=== PATIENT | female | born 1990 ===

== ENCOUNTER 2021-11-19 11:09 | Observation (INO) ==
[2021-11-19] MEDS ORDERED: IOPAMIDOL 100 ML BOTTLE IV ONE (11:10)
--- NOTE | 2021-11-19 11:32 | Emergency Department Note ---
HPI General Chief complaint: Abdominal Pain Stated complaint: RLQ pain Time Seen by Provider: 11/19/21 11:31 Source: patient Mode of arrival: ambulatory Limitations: no limitations History of Present Illness HPI Narrative: 31-year-old female with no past medical history presenting with right lower quadrant pain that started this morning. Pain is described as stabbing and sharp. Associated nausea. She went to [facility] where she had labs obtained which showed a white blood cell count of 16.1. She was sent to the emergency department for further evaluation. Patient states she has an IUD in place. No fever, vomiting, blood in the stool, dysuria, or hematuria. Related Data Allergies Allergy/AdvReac Type Severity Reaction Status Date / Time No Known Drug Allergies Allergy Unverified 11/19/21 11:10 Review of Systems ROS ROS Narrative: Narrative: Constitutional: Denies fever or chills ENT ED: Denies throat pain Cardiovascular: Denies chest pain Respiratory: Denies shortness of breath or cough Gastrointestinal: Reports abdominal pain and nausea; Denies vomiting, diarrhea or melena Genitourinary: Denies dysuria or hematuria Musculoskeletal: Denies back pain Integumentary: Denies rash or lesions Neurological: Denies headache or weakness Psychiatric: Denies anxiety Endocrine: Denies fatigue Hematological/Lymphatic: Denies easy bruising PFSH Narrative Patient History Narrative: Narrative: Medical/Surgical/Family History All Active Problems (Updated 11/19/21 @ 14:24 by Quinn Bosch MD) Appendicitis (Acute) Social History Smoking Status: Never smoker Exam Narrative Narrative: Narrative: General Limitations: no limitations General appearance: Present alert and in no apparent distress Head Head: Present atraumatic and normocephalic Eye Eye: Present normal appearance and EOMI; Absent scleral icterus or conjunctival injection ENT ENT: Present mucous membranes moist Neck Neck: Present trachea midline Chest Chest: Present symmetric chest wall rise Respiratory Respiratory: Present normal lung sounds bilaterally; Absent respiratory distre ss, wheezes, stridor, accessory muscle use or prolonged expiratory phase Cardiovascular Cardiovascular: Present regular rate and normal rhythm; Absent systolic murmur or diastolic murmur Adbominal Abdominal: Present soft and tenderness (Mild right lower quadrant tenderness to palpation); Absent distention, guarding, rebound or rigidity Extremities Extremities: Present normal inspection; Absent pretibial edema Back Back: Absent CVA tenderness (R) or CVA tenderness (L) Neurological Neurological: Present alert and oriented X3; Absent motor sensory deficit Psychiatric Psychiatric: Present normal affect and normal mood Skin Skin: Present warm (WNL) and dry Course Consultations Consultation #1: Dr. Lau, general surgery Time: 14:20 Vital Signs Vital signs: Vital Signs Temperature 98.1 F 11/19/21 11:11 Pulse Rate 100 H 11/19/21 11:11 Respiratory Rate 16 11/19/21 11:11 Blood Pressure 120/84 11/19/21 11:11 Pulse Oximetry (%) 100 11/19/21 11:11 Temperature 98.1 F 11/19/21 11:11 Pulse Rate 82 11/19/21 14:55 Respiratory Rate 16 11/19/21 11:11 Blood Pressure 108/71 11/19/21 14:55 Pulse Oximetry (%) 99 11/19/21 14:55 MDM MDM Narrative Medical decision making narrative: 31-year-old female presenting with right lower quadrant pain. Vital signs are stable. Given her leukocytosis and right lower quadrant tenderness, concern for appendicitis. Will obtain labs, UA, and CT imaging. 1422: Labs notable for leukocytosis to 15.3. CT abdomen shows evidence of simple appendicitis without signs of perforation. The appendix is moderately dilated at 9mm. I spoke with Dr. Lau of general surgery who will come and evaluate the patient. IV Zosyn ordered and patient updated. 1520: Patient will be admitted for IV antibiotics by Dr. Lau. She is okay for clear liquid diet today. Lab Data Lab results reviewed: Yes I reviewed the patient's lab results. Result diagrams: 11/19/21 12:00 11/19/21 12:00 Labs: Lab Results 11/19/21 11/19/21 11/19/21 Range/Units 12:00 12:00 12:10 WBC 15.3 H (4.5-11.0) K/mcL RBC 4.50 (3.59-5.38) M/mcL Hgb 14.3 (11.2-15.7) g/dL Hct 41.8 (34.1-44.9) % MCV 92.9 (80.0-100.0) fL MCH 31.8 (26.0-34.0) pg MCHC 34.2 (31.0-36.0) g/dL RDW 12.9 (11.5-14.5) % Plt Count 288 (140-440) K/mcL MPV 10.3 (7.4-10.4) fL Neut % (Auto) 87.4 H (38.0-78.0) % Lymph % (Auto) 7.4 L (15.5-49.0) % [place] % (Auto) 4.8 (1.0-12.0) % Eos % (Auto) 0.1 (0.0-7.0) % Baso % (Auto) 0.3 (0.0-2.0) % Lymph # (Auto) 1.13 L (1.50-4.80) K/mcL [place] # (Auto) 0.74 (0.10-0.90) K/mcL Eos # (Auto) 0.01 (0.00-0.70) K/mcL Baso # (Auto) 0.04 (0.00-0.30) K/mcL Absolute Neutrophils 13.38 H (1.80-8.00) K/mcL Sodium 135 (133-145) mmol/L Potassium 4.2 (3.3-5.1) mmol/L Chloride 103 (96-108) mmol/L Carbon Dioxide 24 (22-30) mmol/L Anion Gap 8.0 (8.0-16.0) BUN 7 (6-20) mg/dL Creatinine 0.7 (0.6-1.1) mg/dL GFR Calculation 113 Glucose 120 H (70-105) mg/dL Calcium 9.1 (8.6-10.4) mg/dL Total Bilirubin 0.3 (0.1-1.0) mg/dL AST 22 (<32) U/L ALT 20 (<40) U/L Alkaline Phosphatase 77 (39-117) U/L Total Protein 7.1 (5.9-8.4) gm/dL Albumin 4.4 (3.2-5.2) gm/dL Globulin 2.7 (2.2-3.7) gm/dL Albumin/Globulin Ratio 1.6 (1.0-2.3) Urine Color Yellow Urine Appearance Hazy A (Clear) Urine pH 8.0 (5.0-9.0) Ur Specific [place] 1.009 (1.000-1.035) Urine Protein Negative (Negative) mg/dL Urine Glucose (UA) Negative (Negative) mg/dL Urine Ketones Negative (Negative) mg/dL Urine Occult Blood >=1.0 A (Negative) mg/dL Urine Nitrate Negative (Negative) Urine Bilirubin Negative (Negative) mg/dL Urine Urobilinogen Negative mg/dL Ur Leukocyte Esterase Negative (Negative) /uL Urine RBC 66 H (0-3) /hpf Urine WBC 1 (0-4) /hpf Ur Squamous Epith Cells 0 (0-4) /hpf Urine Bacteria Few A (0) /hpf Urine Mucus Few A (None) /hpf Ur Culture Indicated? Yes ED POC Tests ED POC Tests: HCG POC Results Negative Radiology Data Radiology results reviewed: Yes I reviewed the patient's radiology results. Radiology results narrative: Ordering Physician:Quinn Bosch M.D. Date of Service:11/19/21 Procedure(s):CT abdomen pelvis w con CLINICAL INFORMATION: Right lower quadrant pain COMPARISON: None. TECHNIQUE: Following enteric contrast, 80 cc of Isovue-370 were injected intravenously, and 60 seconds later, 0.625 mm helical slices were obtained from the mid heart through the subtrochanteric regions. Following reconstruction, 2.5 mm sagittal, coronal and axial reformatted images were processed and reviewed at bone, lung and soft tissue windows. Five minutes later, 0.625 mm helical slices were obtained from the mid heart through the kidneys and viewed at soft tissue windows.The exam was performed using radiation dose optimization techniques including, but not limited to, automated exposure control, adjustment of the mA and/or kV according to patient size and use of iterative reconstruction technique. FINDINGS: The lung bases are clear. No effusions. The visualized heart is grossly normal. Abdominal images show mild fatty change within the liver. No focal hepatic lesions. Gallbladder and bile ducts, liver, both adrenal glands, spleen, pancreas and aorta, including aortic branches, are normal in size, configuration and attenuation without focal lesion. Two small cysts are present in the inferior pole the right kidney ranging up to 12 mm. No significant renal abnormality. There is no free air, free fluid or adenopathy. Pelvic images show normal urinary bladder. Anteflexed uterus is normal in size: 7.1 x 4 cm. There is a 12 mm fibroid in the anterior mid uterine segment. Both ovaries are normal colon the left is 3.2 x 2.5 cm and the right is 3.4 x 2.5 cm. The stomach, small bowel, and large bowel are grossly normal. The appendix is located in the inferior pericecal region and is moderately dilated-9 mm with wall thickening mucosal enhancement and mild inflammation the periappendiceal fat. Findings compatible simple appendicitis. Bone windows show no osseous abnormality IMPRESSION: Simple appendicitis. Appendix is located in the inferior pericecal region. Mild fatty change in the liver. Interpreted and Authenticated by: Serafin Prescott 11/19/21 Discharge Plan Patient/Caregiver Discharge Instructions Pt seen by DRIVER GUIDE/PA only: No Clinical Impression: Appendicitis Patient Disposition: Xfer As Inpt ([facility]) Condition: Good Follow up with: No,PCP [Primary Care Provider] -
[2021-11-19 12:29] LABS: Basophils # (Auto) 0.04 K/mcL (0.00-0.30); Basophils % (Auto) 0.3 % (0.0-2.0); Eosinophils # (Auto) 0.01 K/mcL (0.00-0.70); Eosinophils % (Auto) 0.1 % (0.0-7.0); Hematocrit 41.8 % (34.1-44.9); Hemoglobin 14.3 g/dL (11.2-15.7); Lymphocytes # (Auto) 1.13 K/mcL (1.50-4.80); Lymphocytes % (Auto) 7.4 % (15.5-49.0); Mean Cell Volume 92.9 fL (80.0-100.0); Mean Corpuscular HGB Conc 34.2 g/dL (31.0-36.0); Mean Platelet Volume 10.3 fL (7.4-10.4); Monocytes # (Auto) 0.74 K/mcL (0.10-0.90); Monocytes % (Auto) 4.8 % (1.0-12.0); Neutrophils % (Auto) 87.4 % (38.0-78.0); Platelet Count 288 K/mcL (140-440); Red Cell Distribution Width 12.9 % (11.5-14.5); WBC 15.3 K/mcL (4.5-11.0)
[2021-11-19 12:57] LABS: ALT/SGPT 20 U/L (<40); AST/SGOT 22 U/L (<32); Albumin 4.4 gm/dL (3.2-5.2); Albumin/Globulin Ratio 1.6 (1.0-2.3); Alkaline Phosphatase 77 U/L (39-117); Bilirubin,Total 0.3 mg/dL (0.1-1.0); Blood Urea Nitrogen 7 mg/dL (6-20); Calcium 9.1 mg/dL (8.6-10.4); Carbon Dioxide 24 mmol/L (22-30); Chloride 103 mmol/L (96-108); Globulin 2.7 gm/dL (2.2-3.7); Glomerular Filtration Rate 113; Glucose 120 mg/dL (70-105)
--- NOTE | 2021-11-19 13:49 | Cat Scan Report ---
CLINICAL INFORMATION: Right lower quadrant pain COMPARISON: None. TECHNIQUE: Following enteric contrast, 80 cc of Isovue-370 were injected intravenously, and 60 seconds later, 0.625 mm helical slices were obtained from the mid heart through the subtrochanteric regions. Following reconstruction, 2.5 mm sagittal, coronal and axial reformatted images were processed and reviewed at bone, lung and soft tissue windows. Five minutes later, 0.625 mm helical slices were obtained from the mid heart through the kidneys and viewed at soft tissue windows.The exam was performed using radiation dose optimization techniques including, but not limited to, automated exposure control, adjustment of the mA and/or kV according to patient size and use of iterative reconstruction technique. FINDINGS: The lung bases are clear. No effusions. The visualized heart is grossly normal. Abdominal images show mild fatty change within the liver. No focal hepatic lesions. Gallbladder and bile ducts, liver, both adrenal glands, spleen, pancreas and aorta, including aortic branches, are normal in size, configuration and attenuation without focal lesion. Two small cysts are present in the inferior pole the right kidney ranging up to 12 mm. No significant renal abnormality. There is no free air, free fluid or adenopathy. Pelvic images show normal urinary bladder. Anteflexed uterus is normal in size: 7.1 x 4 cm. There is a 12 mm fibroid in the anterior mid uterine segment. Both ovaries are normal colon the left is 3.2 x 2.5 cm and the right is 3.4 x 2.5 cm. The stomach, small bowel, and large bowel are grossly normal. The appendix is located in the inferior pericecal region and is moderately dilated-9 mm with wall thickening mucosal enhancement and mild inflammation the periappendiceal fat. Findings compatible simple appendicitis. Bone windows show no osseous abnormality IMPRESSION: Simple appendicitis. Appendix is located in the inferior pericecal region. Mild fatty change in the liver. Interpreted and Authenticated by: Serafin Prescott 11/19/21
[2021-11-19 13:56] LABS: Appearance,Urine HAZY (Clear); Bacteria,Urine FEW /hpf (0); Bilirubin,Urine Negative (Negative); Color,Urine YELLOW; Culture Indicated,Urine Yes; Glucose,Urine (UA) Negative (Negative); Ketones,Urine Negative (Negative); Leukocyte Esterase,Urine Negative /uL (Negative); Mucus,Urine FEW /hpf; Nitrate,Urine Negative (Negative); Protein,Urine Negative (Negative); Specific Gravity,Urine 1.009 (1.000-1.035); Urine Blood >=1.0 mg/dL (Negative); Urine RBC 66 /hpf (0-3); Urine Squamous Epithelial Cell 0 /hpf (0-4); Urine WBC 1 /hpf (0-4); Urobilinogen,Urine Negative
[2021-11-19] MEDS ORDERED: PIPERACILLIN SODIUM/TAZOBACTAM 3.375 GM in DEXTROSE 5% IN WATER 50 ML IV ONE (14:19)
--- NOTE | 2021-11-19 15:17 | General Surgery Consult Note ---
HPI Data of Consult Patient: new to practice Consult date: 11/19/21 Requesting physician: Quinn Bosch Primary Care Provider: PCP No Consult Narrative Chief complaint: RLQ Pain Reason for consult: Abdominal Pain History of present illness: Janee is seen in consultation today after awaking in the middle of the night last night with intense pain in the RLQ. She had no other associated issues and otherwise feels well. She has not been vomiting and she last ate at 930 or 10 am this morning. She has not had any prior abdominal surgery and has no cardiopulmonary issues. She is not on any oral anticoagulants. CT scan was done with demonstration of findings consistent with Acute Appendicitis without evidence of abscess or perforation. cc:: CC: Review of Systems All systems: reviewed and no additional remarkable complaints except as stated Constitutional Additional comments: no fevers, chills or weight loss EENT Additional comments: no visual changes Additional comments: no changes Breasts Additional comments: no issues Cardiovascular Additional comments: no chest pain or cardiac history Respiratory Additional comments: no cough or SOB Gastrointestinal Additional comments: see HPI Genitourinary Additional comments: no hematuria Musculoskeletal Additional comments: no changes Integumentary Additional comments: no dermal changes Neurological Additional comments: no motor or sensory changes Psychiatric Additional comments: no changes Hematologic/Lymphatic Hematologic/Lymphatic: Absent lymphadenopathy PFSH PFSH All Active Problems (Updated 11/19/21 @ 14:24 by Quinn Bosch MD) Appendicitis (Acute) MEDS/ALLERGIES Home Medications and Allergies Allergies Allergy/AdvReac Type Severity Reaction Status Date / Time No Known Drug Allergies Allergy Unverified 11/19/21 11:10 Physical Examination Vital Signs Vital signs: Temp Pulse Resp BP Pulse Ox 98.1 F 82 16 108/71 99 11/19/21 11:11 11/19/21 14:55 11/19/21 11:11 11/19/21 14:55 11/19/21 14:55 General physical appearance General physical exam: other (looks well, non toxic ) Eyes Eye exam: other (anicteric ) ENT ENT exam: normal pinna and normal nares Head Head exam IM: Present atraumatic, normal inspection and normocephalic Neck Neck exam: no masses and no lymphadenopathy Cardiovascular Cardiovascular exam IM: Present RRR Respiratory Respiratory exam: other (normal respiratory effort without distress ) Abdomen Abdomen: Present soft (soft and non distended, mildly obese, minimally to non tender at RLQ, no peritoneal findings ) Genitourinary Genitourinary (Female): Present other (no CVA tenderness ) Integumentary Integumentary: Present other (normal appearing intact skin ) Neurologic Neurologic: Present other (grossly intact ) Psychiatric Psychiatric: Present oriented to time, oriented to person and oriented to place Results Labs Result diagrams: 11/19/21 12:00 11/19/21 12:00 Labs: Abnormal lab results 11/19/21 11/19/21 11/19/21 Range/Units 12:00 12:00 12:10 WBC 15.3 H (4.5-11.0) K/mcL Neut % (Auto) 87.4 H (38.0-78.0) % Lymph % (Auto) 7.4 L (15.5-49.0) % Lymph # (Auto) 1.13 L (1.50-4.80) K/mcL Absolute Neutrophils 13.38 H (1.80-8.00) K/mcL Glucose 120 H (70-105) mg/dL Urine Appearance Hazy A (Clear) Urine Occult Blood >=1.0 A (Negative) mg/dL Urine RBC 66 H (0-3) /hpf Urine Bacteria Few A (0) /hpf Urine Mucus Few A (None) /hpf Diabetes panel 11/19/21 Range/Units 12:00 Sodium 135 (133-145) mmol/L Potassium 4.2 (3.3-5.1) mmol/L Chloride 103 (96-108) mmol/L Carbon Dioxide 24 (22-30) mmol/L BUN 7 (6-20) mg/dL Creatinine 0.7 (0.6-1.1) mg/dL Glucose 120 H (70-105) mg/dL Calcium 9.1 (8.6-10.4) mg/dL AST 22 (<32) U/L ALT 20 (<40) U/L Alkaline Phosphatase 77 (39-117) U/L Total Protein 7.1 (5.9-8.4) gm/dL Albumin 4.4 (3.2-5.2) gm/dL Calcium panel 11/19/21 Range/Units 12:00 Calcium 9.1 (8.6-10.4) mg/dL Albumin 4.4 (3.2-5.2) gm/dL Pituitary panel 11/19/21 Range/Units 12:00 Sodium 135 (133-145) mmol/L Potassium 4.2 (3.3-5.1) mmol/L Chloride 103 (96-108) mmol/L Carbon Dioxide 24 (22-30) mmol/L BUN 7 (6-20) mg/dL Creatinine 0.7 (0.6-1.1) mg/dL Glucose 120 H (70-105) mg/dL Calcium 9.1 (8.6-10.4) mg/dL Adrenal panel 11/19/21 Range/Units 12:00 Sodium 135 (133-145) mmol/L Potassium 4.2 (3.3-5.1) mmol/L Chloride 103 (96-108) mmol/L Carbon Dioxide 24 (22-30) mmol/L BUN 7 (6-20) mg/dL Creatinine 0.7 (0.6-1.1) mg/dL Glucose 120 H (70-105) mg/dL Calcium 9.1 (8.6-10.4) mg/dL Total Bilirubin 0.3 (0.1-1.0) mg/dL AST 22 (<32) U/L ALT 20 (<40) U/L Alkaline Phosphatase 77 (39-117) U/L Total Protein 7.1 (5.9-8.4) gm/dL Albumin 4.4 (3.2-5.2) gm/dL All other labs normal. A/P Assessment and plan (1) Appendicitis: Assessment and plan: Acute Appendicitis Surgery is recommended and discussed with her at length. She has expressed an interest in avoiding surgery if at all possible and the option for non operative mgmt is reviewed at length both from the data perspective as well as recent [place] based data all of which do support Antibiotic based non operative mgmt for uncomplicated Appendicitis as a reasonable option. After a full review of Risks, Benefits, Potential Complications and Alternative Treatment Options to both approaches, she would like to go ahead with IV ABs only at this time and see how things go. We will plan to admit for IV ABs now and she'll be on Clear Liquids only tonight and made NPO after midnight in the event that surgery becomes necessary tomorrow My contact information is provided as well to her partner who is with her at this time Status: Acute Time Spent With Patient Time: Total time spent is greater than 50% in coordination of care (as documented) at patient's floor/unit and/or counseling patient:
[2021-11-19] MEDS ORDERED: HYDROmorphone 0.5 MG/0.5 ML SYRINGE IV PRN (15:36)
[2021-11-19] MEDS ORDERED: ONDANSETRON 4 MG/2 ML VIAL IV PRN (15:36)
[2021-11-19] MEDS: DEXTROSE 5%-LR 1,000 ML IV SCH (16:40)
[2021-11-19] MEDS: MEROPENEM 0.5 GM in 0.9 % SODIUM CHLORIDE 50 ML IV SCH (16:46)
[2021-11-19] MEDS: ACETAMINOPHEN 500 MG/50 ML BAG IV PRN (19:15)
[2021-11-19] MEDS: 0.9 % SODIUM CHLORIDE 10 ML SYRINGE IV SCH (21:54)
[2021-11-20] MEDS: MEROPENEM 0.5 GM in 0.9 % SODIUM CHLORIDE 50 ML IV SCH ×3 (00:29→11:58)
[2021-11-20] MEDS: DEXTROSE 5%-LR 1,000 ML IV SCH ×2 (04:00→16:26)
[2021-11-20] MEDS: ACETAMINOPHEN 500 MG/50 ML BAG IV PRN (04:01)
[2021-11-20] MEDS: 0.9 % SODIUM CHLORIDE 10 ML SYRINGE IV SCH ×3 (04:02→15:34)
[2021-11-20 06:31] LABS: Hematocrit 42.7 % (34.1-44.9); Hemoglobin 13.3 g/dL (11.2-15.7); Mean Cell Volume 100.5 fL (80.0-100.0); Mean Corpuscular HGB Conc 31.1 g/dL (31.0-36.0); Mean Platelet Volume 10.3 fL (7.4-10.4); Platelet Count 267 K/mcL (140-440); RBC 4.25 M/mcL (3.59-5.38); Red Cell Distribution Width 13.3 % (11.5-14.5); WBC 8.5 K/mcL (4.5-11.0)
[2021-11-20 07:02] LABS: Blood Urea Nitrogen 6 mg/dL (6-20); Calcium 8.1 mg/dL (8.6-10.4); Carbon Dioxide 19 mmol/L (22-30); Chloride 107 mmol/L (96-108); Glomerular Filtration Rate 119; Glucose 104 mg/dL (70-105)
--- NOTE | 2021-11-20 12:15 | General Surgery Progress Note ---
SUBJECTIVE Subjective Patient information: Note initiated : 11/20/21 at 12:10 pm Service Date, if different from initiated Date: [] Patient: Janee Noland 31 y/o F admitted on 11/19/21 for RLQ pain. Chief Complaint: [] Feels well this am, some residual pain but significantly less. Tolerating danita rs, passing gas, no issues Constitutional Vitals: Vital Signs Temp Pulse Resp BP Pulse Ox 97.9 F 72 16 103/70 100 11/20/21 11:45 11/20/21 11:45 11/20/21 11:45 11/20/21 11:45 11/20/21 11:45 Period Temp Pulse Resp BP Sys/[place]ack Pulse Ox Last 24 Hr 97.3 F-98.8 F 63-88 14-20 93-128/60-87 96-100 Intake and Output 11/19/21 11/20/21 11/20/21 21:59 05:59 13:59 Intake Total 415 1450 50 Output Total 0 0 Balance 415 1450 50 Weight 168 lb 8 oz Intake & Output: Intake & Output 11/19/21 11/20/21 11/20/21 21:59 05:59 13:59 Intake Total 415 1450 50 Output Total 0 0 Balance 415 1450 50 Weight 168 lb 8 oz Intake: IV 415 950 50 Dextrose 5%-Lactated Ringers 1, 265 850 0 000 ml @ 100 mls/hr IV .Q10H SHANIKA Rx#:[id number] Merrem 0.5 gm In Sodium 50 50 50 Chloride 0.9% 50 ml @ 100 mls/ hr IV Q6 SHANIKA Rx#:[id number] Zosyn 3.375 gm In Dextrose 5% 50 in Water 50 ml @ 100 mls/hr IV ONCE ONE Rx#:[id number] Oral 500 Output: # of times incontinent of urine 0 0 Other: Urine Appearance Clear Clear Urine Color Straw Straw # Voids 1 0 # Bowel Movements 0 0 # of times incontinent of 0 0 Bowels Exam: Looks well, NAD Respiratory Respiratory exam: Present normal respiratory exam Cardiovascular Cardiovascular exam: Present normal rate and rhythm GI/Abdominal Additional comments: soft and non tender, non distended, unable to elicit any tenderness to exam Extremities Exam Additional comments: well perfused A/P Assessment and plan (1) Appendicitis: Status: Acute Plan Acute Appendicitis beging managed non operatively per patient request Doing Well Ok for discharge home on oral ABs with follow up Option to stay another day to make sure she feels she is fully resolving is offered as well Time Spent With Patient Time: Total time spent is greater than 50% in coordination of care (as documented) at patient's floor/unit and/or counseling patient:
[2021-11-20] MEDS ORDERED: CIPROFLOXACIN 500 MG TABLET PO SCH ×2 (12:35→21:00)
[2021-11-20] MEDS ORDERED: metroNIDAZOLE 500 MG TABLET PO SCH (14:00)
== END 2021-11-20 16:45 | disposition home or self-care (01) ==
LOC: ED 11:09 → INTOOBSV 16:15 → MEDSUR 16:15
PROVIDERS: ADMIT Surgery Surgical Critical Care; ATTEND Surgery Surgical Critical Care

== ENCOUNTER 2024-12-21 22:38 | Observation (INO) ==
[2024-12-21] MEDS ORDERED: IOPAMIDOL 100 ML BOTTLE IV ONE (22:39)
[2024-12-21] MEDS: 0.9 % SODIUM CHLORIDE 1,000 ML IV ONE (23:00)
[2024-12-21] MEDS: ONDANSETRON 4 MG/2 ML VIAL IV ONE (23:01)
[2024-12-21] MEDS: KETOROLAC 15 MG/ML VIAL IV ONE (23:01)
[2024-12-21 23:54] LABS: Basophils # (Auto) 0.03 K/mcL (0.00-0.30); Basophils % (Auto) 0.2 % (0.0-2.0); Eosinophils # (Auto) 0.07 K/mcL (0.00-0.70); Eosinophils % (Auto) 0.4 % (0.0-7.0); Hematocrit 45.6 % (34.1-44.9); Hemoglobin 15.1 g/dL (11.2-15.7); Lymphocytes # (Auto) 2.32 K/mcL (1.50-4.80); Lymphocytes % (Auto) 14.1 % (15.5-49.0); Mean Cell Volume 96.6 fL (80.0-100.0); Mean Corpuscular HGB Conc 33.1 g/dL (31.0-36.0); Mean Platelet Volume 10.3 fL (8.8-12.5); Monocytes # (Auto) 1.06 K/mcL (0.10-0.90); Monocytes % (Auto) 6.4 % (1.0-12.0); Neutrophils % (Auto) 78.8 % (38.0-78.0); Platelet Count 303 K/mcL (140-440); RBC 4.72 M/mcL (3.59-5.38); Red Cell Distribution Width 12.1 % (11.5-14.5); WBC 16.5 K/mcL (4.5-11.0)
[2024-12-22 00:13] LABS: Appearance,Urine Clear (Clear); Bacteria,Urine 0 /hpf (0); Bilirubin,Urine Negative (Negative); Color,Urine Yellow; Glucose,Urine (UA) Negative (Negative); Ketones,Urine Negative (Negative); Leukocyte Esterase,Urine Trace /uL (Negative); Nitrate,Urine Negative (Negative); PH,Urine 7.5 (5.0-9.0); Protein,Urine Negative (Negative); Specific Gravity,Urine 1.015 (1.000-1.035); Urine Blood Negative ery/mcL (Negative); Urine RBC < 1 /hpf (0-3); Urine Squamous Epithelial Cell 3 /hpf (0-4); Urine WBC 2 /hpf (0-4); Urobilinogen,Urine Normal
[2024-12-22 00:42] LABS: ALT/SGPT 33 U/L (<40); AST/SGOT 34 U/L (<32); Albumin 4.3 gm/dL (3.2-5.2); Albumin/Globulin Ratio 1.5 (1.0-2.3); Alkaline Phosphatase 95 U/L (39-117); Bilirubin,Total 0.3 mg/dL (0.1-1.0); Blood Urea Nitrogen 10 mg/dL (6-20); Calcium 9.4 mg/dL (8.6-10.4); Carbon Dioxide 21 mmol/L (22-30); Chloride 106 mmol/L (96-108); Globulin 2.8 gm/dL (2.2-3.7); Glomerular Filtration Rate 94; Glucose 99 mg/dL (70-105); Potassium 4.2 mmol/L (3.3-5.1); Sodium 140 mmol/L (133-145)
[2024-12-22] MEDS: PIPERACILLIN SODIUM/TAZOBACTAM 3.375 GM in DEXTROSE 5% IN WATER 50 ML IV ONE (01:14)
[2024-12-22] MEDS: 0.9 % SODIUM CHLORIDE 1,000 ML IV SCH (02:51)
[2024-12-22] MEDS: morphine 2 MG/ML VIAL IV PRN (06:37)
[2024-12-22] MEDS: ONDANSETRON 4 MG/2 ML VIAL IV PRN (06:37)
[2024-12-22] MEDS ORDERED: SUCCINYLCHOLINE 200 MG/10 ML VIAL IV ONE (13:07)
[2024-12-22] MEDS ORDERED: PROPOFOL 200 MG/20 ML VIAL IV ONE (13:07)
[2024-12-22] MEDS ORDERED: LIDOCAINE 2% PF 5 ML VIAL ONE (13:07)
[2024-12-22] MEDS ORDERED: ROCURONIUM 10 MG/ML ML IV ONE (13:07)
[2024-12-22] MEDS ORDERED: fentaNYL 100 MCG/2 ML VIAL ONE (13:09)
[2024-12-22] MEDS ORDERED: MIDAZOLAM 2 MG/2 ML VIAL ONE (13:09)
[2024-12-22] MEDS ORDERED: MEPERIDINE 25 MG/ML VIAL IV PRN (14:21)
[2024-12-22] MEDS ORDERED: HYDROmorphone 0.5 MG/0.5 ML SYRINGE IV PRN (14:21)
[2024-12-22] MEDS ORDERED: IPRATROPIUM/ALBUTEROL 3 ML AMPUL.NEB NEB PRN (14:21)
[2024-12-22] MEDS ORDERED: SUGAMMADEX SODIUM 200 MG/2 ML VIAL IV ONE (14:24)
[2024-12-22] MEDS: PIPERACILLIN SODIUM/TAZOBACTAM 4.5 GM in DEXTROSE 5% IN WATER 50 ML IV SCH (14:29)
[2024-12-22] MEDS ORDERED: fentaNYL 100 MCG/2 ML VIAL IV PRN (14:38)
[2024-12-22 14:43] LABS: Appearance,Urine CLEAR (Clear); Bilirubin,Urine NEGATIVE (Negative); Color,Urine LT. YELLOW; Glucose,Urine (UA) NEGATIVE (Negative); Ketones,Urine NEGATIVE (Negative); Leukocyte Esterase,Urine NEGATIVE /uL (Negative); Nitrate,Urine NEGATIVE (Negative); PH,Urine 7.5 (5.0-9.0); Protein,Urine NEGATIVE (Negative); Specific Gravity,Urine 1.015 (1.000-1.035); Urine Blood NEGATIVE ery/mcL (Negative); Urobilinogen,Urine Normal
[2024-12-22] MEDS: KETOROLAC 30 MG/ML VIAL IV PRN (14:56)
[2024-12-22] MEDS: fentaNYL 100 MCG/2 ML VIAL IV PRN (15:04)
[2024-12-22] MEDS: SCOPOLAMINE 1 PATCH PATCH TOPICAL PRN (18:27)
[2024-12-22] MEDS: PIPERACILLIN SODIUM/TAZOBACTAM 4.5 GM in DEXTROSE 5% IN WATER 100 ML IV SCH (18:54)
[2024-12-22] MEDS: ACETAMINOPHEN 1,000 MG/100 ML BAG IV PRN (20:48)
[2024-12-23 06:10] LABS: Basophils # (Auto) 0.02 K/mcL (0.00-0.30); Basophils % (Auto) 0.3 % (0.0-2.0); Eosinophils # (Auto) 0.04 K/mcL (0.00-0.70); Eosinophils % (Auto) 0.5 % (0.0-7.0); Hemoglobin 12.8 g/dL (11.2-15.7); Lymphocytes # (Auto) 1.83 K/mcL (1.50-4.80); Lymphocytes % (Auto) 23.5 % (15.5-49.0); Mean Cell Volume 96.5 fL (80.0-100.0); Mean Corpuscular HGB Conc 32.8 g/dL (31.0-36.0); Mean Platelet Volume 9.8 fL (8.8-12.5); Monocytes # (Auto) 0.67 K/mcL (0.10-0.90); Monocytes % (Auto) 8.6 % (1.0-12.0); Platelet Count 276 K/mcL (140-440); RBC 4.04 M/mcL (3.59-5.38); Red Cell Distribution Width 12.4 % (11.5-14.5); WBC 7.8 K/mcL (4.5-11.0)
[2024-12-23 06:24] LABS: ALT/SGPT 21 U/L (<40); AST/SGOT 17 U/L (<32); Albumin 3.6 gm/dL (3.2-5.2); Albumin/Globulin Ratio 1.6 (1.0-2.3); Alkaline Phosphatase 83 U/L (39-117); Bilirubin,Direct 0.2 mg/dL (<0.3); Bilirubin,Total 0.6 mg/dL (0.1-1.0); Blood Urea Nitrogen 7 mg/dL (6-20); Calcium 8.5 mg/dL (8.6-10.4); Carbon Dioxide 23 mmol/L (22-30); Chloride 104 mmol/L (96-108); Globulin 2.3 gm/dL (2.2-3.7); Glomerular Filtration Rate 94; Glucose 98 mg/dL (70-105); Lactate Dehydrogenase 125 U/L (135-225); Phosphorous 3.3 mg/dL (2.5-4.5); Potassium 3.8 mmol/L (3.3-5.1); Sodium 137 mmol/L (133-145); Triglycerides 77 mg/dL (<150); Uric Acid 3.2 mg/dL (2.5-8.0)
[2024-12-23 11:52] VITALS: TEMP 97.8; O2SAT 98
== END 2024-12-23 14:21 | disposition home or self-care (01) ==
LOC: ED 22:38 → MEDSUR 22:38
PROVIDERS: ADMIT Family Medicine Adult Medicine; ATTEND Family Medicine Adult Medicine
PROC: LAPAPPY (ICD-10-PCS; 2024-12-22 13:45)